=== PATIENT | female | born 1995 | race Caucasian/White ===

== ENCOUNTER 2017-03-30 07:25 | Emergency (ER) | payer BC, OTHER ==
[2017-03-30 07:32] VITALS: TEMP 97.9
[2017-03-30] MEDS ORDERED: ONDANSETRON DISINTEGRATING 4 MG TAB PO ONE (07:37)
[2017-03-30] MEDS ORDERED: ONDANSETRON DISINTEGRATING 4 MG TAB ONE (07:39)
[2017-03-30] MEDS ORDERED: KETOROLAC 30 MG/1 ML SDV IVP ONE (07:45)
[2017-03-30] MEDS ORDERED: NS 1,000 ML IV ONE (07:45)
--- NOTE | 2017-03-30 07:48 | EDPHY ---
H & P Stated Complaint: n/v/d epigastric pain/etoh last evening Time Seen by Provider: 03/30/17 07:37 HPI/ROS: CHIEF COMPLAINT: Epigastric pain, vomiting HISTORY OF PRESENT ILLNESS: Patient is a 21-year-old female who comes to the emergency department complaining of epigastric pain, nausea vomiting for the last 6 hours. She states that she has vomited many times. No hematemesis. No diarrhea. No fever. She was drinking last night but states it was nothing unusual. No trauma. No history of abdominal surgeries. She denies . She is on control and does not frequently have periods. No urinary symptoms. No chest pain or shortness of breath. No sick contacts. REVIEW OF SYSTEMS: Constitutional: denies: chills, fever, recent illness, recent injury EENTM: denies: blurred vision, double vision, nose congestion Respiratory: denies: cough, shortness of breath Cardiac: denies: chest pain, irregular heart rate, lightheadedness, palpitations Gastrointestinal/Abdominal: See HPI Genitourinary: denies: dysuria, frequency, hematuria, pain Musculoskeletal: denies: joint pain, muscle pain Skin: denies: lesions, rash, jaundice, bruising Neurological: denies: headache, numbness, paresthesia, tingling, dizziness, weakness Hematologic/Lymphatic: denies: blood clots, easy bleeding, easy bruising Immunologic/allergic: denies: HIV/AIDS, transplant EXAM: GENERAL: Well-appearing, well-nourished and in no acute distress. HEAD: Atraumatic, normocephalic. EYES: Pupils equal round and reactive to light, extraocular movements intact, sclera anicteric, conjunctiva are normal. ENT: TMs normal, nares patent, oropharynx clear without exudates. Moist mucous membranes. NECK: Normal range of motion, supple without lymphadenopathy or JVD. LUNGS: Breath sounds clear to auscultation bilaterally and equal. No wheezes rales or rhonchi. HEART: Regular rate and rhythm without murmurs, rubs or gallops. ABDOMEN: Soft, mild epigastric tenderness, normoactive bowel sounds. No guarding, no rebound. No masses appreciated. BACK: No CVA tenderness, no spinal tenderness, step-offs or deformities EXTREMITIES: Normal range of motion, no pitting or edema. No clubbing or cyanosis. NEUROLOGICAL: Cranial nerves II through XII grossly intact. Normal speech, normal gait. 5/5 strength, normal movement in all extremities, normal sensation PSYCH: Normal mood, normal affect. SKIN: Warm, dry, normal turgor, no visible rashes or lesions. Source: Patient Exam Limitations: No limitations - Personal History LMP (Females 10-55): Extended Cycle BCP/Inj Current Tetanus/Diphtheria Vaccine: Yes - Medical/Surgical History Hx Asthma: No Hx Chronic Respiratory Disease: No Hx Diabetes: No Hx Cardiac Disease: No Hx Renal Disease: No Hx Cirrhosis: No Hx Alcoholism: No Hx HIV/AIDS: No Hx Splenectomy or Spleen Trauma: No Other PMH: lupus - Family History Significant Family History: No pertinent family hx - Social History Smoking Status: Never smoked Alcohol Use: Sober Drug Use: None Constitutional: Initial Vital Signs Temperature (C) 36.6 C 03/30/17 07:29 Heart Rate 104 H 03/30/17 07:29 Respiratory Rate 20 03/30/17 07:29 Blood Pressure 117/82 H 03/30/17 07:29 O2 Sat (%) 98 03/30/17 07:29 O2 Delivery Mode Room Air Allergies/Adverse Reactions: No Known Allergies Allergy (Unverified 03/30/17 07:28) Home Medications: Medication Instructions Recorded ASPIRIN 03/30/17 Cellcept 03/30/17 FOLIC ACID 03/30/17 Nexplanon 03/30/17 Ondansetron Odt [Zofran Odt 4 mg 4 mg PO Q4 PRN #20 tab 03/30/17 (RX)] Prednisone 03/30/17 Medical Decision Making Procedures: Bedside ultrasound: I performed bedside ultrasound and was able to visualize the patient's gallbladder common bile duct. No wall thickening or stones visible. No common bile duct dilatation. Negative sonographic Brambila's. ED Course/Re-evaluation: 8:40 a.m. the patient is feeling much better. Her abdominal pain is resolved. She is asking for some more nausea medication and like to try p.o. challenge. Differential Diagnosis: Partial list of the Differential diagnosis considered include but were not limited to; gastritis, hangover, peptic ulcer disease and although unlikely based on the history and physical exam, I also considered biliary disease, pancreatic disease, obstruction, volvulus, appendicitis. I discussed these differential diagnoses and the plan with the patient as well as the usual and expected course. The patient understands that the diagnosis is provisional and that in medicine we are not always correct and that further workup is often warranted. Usual and customary warnings were given. All of the patient's questions were answered. The patient was instructed to return to the emergency department should the symptoms at all worsen or return, otherwise to followup with the physician as we discussed. - Data Points Laboratory Results: Laboratory Results 03/30/17 07:35 03/30/17 07:35 Medications Given: Discontinued Medications Sodium Chloride (Ns) 1,000 mls @ 0 mls/hr IV ONCE ONE PRN Reason: Wide Open Stop: 03/30/17 07:46 Last Admin: 03/30/17 07:56 Dose: 1,000 mls Ketorolac Tromethamine (Toradol) 15 mg IVP EDNOW ONE Stop: 03/30/17 07:46 Last Admin: 03/30/17 07:57 Dose: 15 mg Ondansetron HCl (Zofran Odt) 4 mg PO EDNOW ONE Stop: 03/30/17 07:38 Last Admin: 03/30/17 07:46 Dose: 4 mg Ondansetron HCl (Zofran) 4 mg IVP EDNOW ONE Stop: 03/30/17 08:42 Last Admin: 03/30/17 08:47 Dose: 4 mg Departure - Departure Disposition: Home, Routine, Self-Care Clinical Impression: Vomiting Qualifiers: Vomiting type: unspecified Vomiting Intractability: non-intractable Nausea presence: without nausea Qualified Code(s): R11.11 - Vomiting without nausea Condition: Fair Instructions: Acute Nausea and Vomiting (ED) Referrals: Radhika Peng PA [Primary Care Provider] - As per Instructions Prescriptions: Ondansetron Odt [Zofran Odt 4 mg (RX)] 4 mg PO Q4 PRN #20 tab PRN Reason: Nausea & Vomiting
[2017-03-30 07:52] LABS: COLOR YELLOW; LEUKOCYTE ESTERASE,URINE TRACE (NEGATIVE); NITRITE,URINE NEGATIVE (NEGATIVE)
[2017-03-30 08:00] LABS: BACTERIA 1+ /hpf (NONE SEEN); MUCUS TRACE /lpf (NONE-1+); RBC,URINE 15-25 /hpf (0-3)
[2017-03-30 08:04] LABS: % IMMATURE GRANULYOCYTES 0.5 % (0.0-1.1); ABSOLUTE IMMATURE GRANULOCYTES 0.06 10^3/uL (0.00-0.10); ADD DIFF? NO; ADD MORPH? NO; ADD SCAN? NO; ATYPICAL LYMPHOCYTE FLAG 20 (0-99); FRAGMENT RBC FLAG 0 (0-99); HEMATOCRIT 41.2 % (38.0-47.0); HEMOGLOBIN 15.2 g/dL (12.6-16.3); LEFT SHIFT FLG 0 (0-99); LIPEMIA HEMOLYSIS FLAG 90 (0-99); MEAN CELL HEMOGLOBIN CONCENTR. 36.9 g/dL (32.4-36.7); MEAN CELL VOLUME 84.1 fL (81.5-99.8); MEAN PLATELET VOLUME 9.7 fL (8.7-11.7); PLATELET CLUMPS FLAG 20 (0-99); PLATELET COUNT 212 10^3/uL (150-400); RED CELL DISTRIBUTION WIDTH 12.6 % (11.5-15.2)
[2017-03-30 08:22] LABS: ALANINE AMINOTRANSFERASE 28 IU/L (9-52); ALKALINE PHOSPHATASE 110 IU/L (38-126); ANION GAP 16 mEq/L (8-16); ASPARTATE AMINOTRANSFERASE 28 IU/L (14-46); BILIRUBIN,TOTAL 1.1 mg/dL (0.1-1.4); BILIRUBIN-CONJUGATED 0.3 mg/dL (0.0-0.5); BILIRUBIN-UNCONJUGATED 0.8 mg/dL (0.0-1.1); CALCIUM 9.7 mg/dL (8.5-10.4); CARBON DIOXIDE 24 mEq/l (22-31); CHLORIDE 107 mEq/L (97-110); CREATININE 0.6 mg/dL (0.6-1.0); GLOMERULAR FILTRATION RATE > 60; GLUCOSE 99 mg/dL (70-100); POTASSIUM 4.2 mEq/L (3.5-5.2); SODIUM 147 mEq/L (134-144)
[2017-03-30] MEDS ORDERED: ONDANSETRON 4 MG/2 ML VIAL IVP ONE (08:41)
[2017-03-30 09:18] VITALS: BP 112/74; PULSE 92; RESP 16; O2SAT 99
== END 2017-03-30 09:18 | disposition home or self-care (01) ==
DX: R11.11 Vomiting without nausea (principal); Z79.82 Long term (current) use of aspirin
CPT/HCPCS: 96374; J1885; J2405